=== PATIENT | female | born 1930 | race Caucasian/White ===

== ENCOUNTER 2022-09-24 11:00 | Emergency (ER) | payer OTHER, BC ==
[~2022-09-24] VITALS: Ht 160 cm; Wt 110.7 kg
--- NOTE | 2022-09-24 11:10 | NUR ---
RECEIVED PT 89 YRS FEMALE CAME BY [facility] FROM HOME S/P FOUNDE OR FLOOR AWAKE AND ALERT RESPIRATION SPONT AND EASY C/O LOWER BACK PAIN
--- NOTE | 2022-09-24 11:30 | NUR ---
INSERTED ANGOCATHETER G 20 ON RT AC BLOOD DROW AND SENT TO LAB
--- NOTE | 2022-09-24 11:45 | NUR ---
COVID SWAB SENT TO LAB
[2022-09-24 12:02] LABS: BASOPHILS % (AUTO) 0.4 % (0.0-2.0); EOSINOPHILS % (AUTO) 0.2 % (0.0-6.0); HEMATOCRIT 37 % (33-45); HEMOGLOBIN 11.9 g/dL (11.5-14.8); LYMPHOCYTES # (AUTO) 0.9 K/uL (0.8-4.8); LYMPHOCYTES % (AUTO) 9.3 % (20.0-44.0); MEAN CORPUSCULAR HGB CONC 32 g/dl (31.0-36.0); MEAN CORPUSCULAR VOLUME 91 fL (82-100); MONOCYTES # (AUTO) 0.7 K/uL (0.1-1.30); MONOCYTES % (AUTO) 6.5 % (2.0-12.0); NEUTROPHILS # (AUTO) 8.4 K/uL (1.8-8.9); NEUTROPHILS % (AUTO) 83.6 % (43.0-81.0); PLATELET COUNT (AUTO) 200 K/uL (150-450); RED BLOOD CELL COUNT(AUTO) 4.08 MIL/uL (4.0-5.2); WHITE BLOOD COUNT (AUTO) 10.1 K/uL (4.3-11.0)
--- NOTE | 2022-09-24 12:15 | NUR ---
TO CT SCAN OF BACK
[2022-09-24 12:20] LABS: CALCIUM, SERUM 8.8 mg/dL (8.5-10.1); CARBON DIOXIDE 28 mmol/L (21-32); CHLORIDE 105 mmol/L (98-107); CREATININE 1.3 mg/dL (0.6-1.3); GLUCOSE 118 mg/dL (74-106); POTASSIUM 4.3 mmol/L (3.5-5.1); SODIUM SERUM 139 mmol/L (136-145); UREA NITROGEN, BLOOD 32 mg/dL (7-18)
[2022-09-24] MEDS ORDERED: IV NS 0.9% 1,000 ML IV ONE (12:30)
[2022-09-24 12:31] LABS: CREATINE KINASE, TOTAL 438 U/L (26-192)
--- NOTE | 2022-09-24 13:23 | NUR ---
[facility] [phone] X 2
--- NOTE | 2022-09-24 13:25 | NUR ---
I&O CATHETER DONE UA SENT TO LAB
--- NOTE | 2022-09-24 13:50 | NUR ---
IV removed. Catheter intact and site benign. Pressure and 4x4 applied to site. No bleeding noted.
--- NOTE | 2022-09-24 13:54 | NUR ---
Patient discharged to home in stable condition. Written and verbal after care instructions given. Patient verbalizes understanding of instruction.
[2022-09-24 14:18] VITALS: BP 163/91
[2022-09-24 14:39] LABS: BILIRUBIN,URINE NEGATIVE (NEGATIVE); COLOR,URINE YELLOW (YELLOW); LEUKOCYTE ESTERASE ,URINE NEGATIVE (NEGATIVE); NITRITE, URINE NEGATIVE (NEGATIVE); PROTEIN,URINE TRACE mg/dl (NEGATIVE); UGLUCOSE NEGATIVE (NEGATIVE); UROBILINOGEN,URINE 0.2 EU/dL (0.2)
[2022-09-24 16:18] LABS: BACTERIA,URINE None seen /HPF (None Seen); MUCUS,URINE Few /LPF (None Seen); SQUAMOUS EPITHELIAL CELL,UR 0-2 /HPF (None Seen); WBC,URINE 0-2 /HPF (0-3)
== END 2022-09-24 14:19 | disposition home or self-care (01) ==
LOC: ER 11:05
DX: M54.9 Dorsalgia, unspecified (principal); I10 Essential (primary) hypertension; R51.9 Headache, unspecified; Z20.822 Contact with and (suspected) exposure to COVID-19; W06.XXXA Fall from bed, initial encounter; Y93.89 Activity, other specified; Y92.89 Other specified places as the place of occurrence of the external cause; Y99.8 Other external cause status
CPT/HCPCS: 99285; 72125; 96360; 71045; 87426; 93005; 70450; 74176; 85025; 80048; 82550; 81001; 36415; 84484; 82553; J7030; C9803